=== PATIENT | female | born 1985 | race Caucasian/White ===

== ENCOUNTER → 2017-01-17 | Outpatient (CLI) | payer OTHER ==
[~2017-01-17] MED LIST: AUGMENTIN PO; BACTRIM DS TAB1 EACH PO; BENTYL20 MG PO; CIPRO PO; CLONIDINE HCL0.1 MG PO; DELTASONE20 MG PO; FIORINAL 50-321 EACH PO; IMODIUM2 MG PO; LEVAQUIN250 MG PO; MACROBID 100 M100 MG PO; MAGIC MOUTHWASH PO; MEDROL4 MG/DOSE- PO; MOTRIN100 MG PO; NAPROSYN250 M1; NAPROSYN250 M1 PO; NO MEDICATIONS; ORUDIS75 M1 DOB; PHENERGAN25 M1 PO; PREDNISONE10 MG PO; PRILOSEC20 MG PO; PYRIDIUM100 MG; PYRIDIUM100 MG PO; ZOFRAN ODT4 MG PO; ZOFRAN PO; ZOFRANODT PO
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
== END | disposition home or self-care (01) ==
LOC: CMRI 16:42
DX: S09.8XXA Other specified injuries of head, initial encounter (principal)
CPT/HCPCS: 70553; A9577

== ENCOUNTER 2017-01-21 19:11 | Emergency (ER) | payer OTHER ==
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
--- NOTE | ~2017-01-21 | EKG ---
PATIENT: ELAINE MARIN UNIT #: [id number] Ventricular Rate: 126 BPM Atrial Rate: 126 BPM P-R Interval: 142 ms QRS Duration: 76 ms Q-T Interval: 320 ms QTC Calculation(Bezet): 463 ms P [place]: 79 degrees Calculated R [place]: 72 degrees Calculated T [place]: 24 degrees Diagnosis Line: Sinus tachycardia Diagnosis Line: Poor R wave progression questionable lead position Diagnosis Line: or body habitus Otherwise normal ECG Diagnosis Line: When compared with ECG of 08-SEP-2014 14:25, Diagnosis Line: Vent. rate has increased BY 62 BPM Diagnosis Line: Confirmed by KOJO JUSTICE MD ([id number]) on 01/26/2017 Diagnosis Line: 11:56:45 AM INTERPRETING MD: RESHMA MILLER
[~2017-01-21 19:11] MED LIST changes: -BACTRIM DS TAB1 EACH PO; -DELTASONE20 MG PO; -PHENERGAN25 M1 PO; -ZOFRAN ODT4 MG PO
[2017-01-21 19:28] LABS: BASOPHIL% 0.4 % (0-2.5); DIFF IND NO; EOSINOPHIL% 0.6 % (0.0-7.0); HEMATOCRIT 40.9 % (35.0-45.0); HEMOGLOBIN 13.7 gm/dL (12.0-16.0); LYMPHOCYTE# 1.7 X10e3 (1.0-3.5); LYMPHOCYTE% 26.3 % (17.0-45.0); MEAN CELL VOLUME 79.1 FL (83-96); MEAN CORPUSCULAR HEMOGLOBIN 26.5 PG (28-34); MEAN CORPUSCULAR HGB CONC 33.5 g/dL (30-36); MEAN PLATELET VOLUME 7.6 FL (6.5-11.5); MONOCYTE# 0.7 X10e3 (0-1.0); MONOCYTE% 10.5 % (3.0-12.0); NEUTROPHIL# 4.1 X10e3 (1.5-7.1); NEUTROPHIL% 62.2 % (40-75); PLATELET COUNT 288 X10e3 (140-420); RED BLOOD COUNT 5.17 X10e (3.90-5.30); RED CELL DISTRIBUTION WIDTH 14.7 % (11.0-15.5); WHITE BLOOD COUNT 6.5 X10e3 (4.0-10.5)
[2017-01-21 19:38] LABS: ALBUMIN SERUM 4.5 g/dL (3.5-5.0); ALKALINE PHOSPHATASE 64 U/L (32-92); ALT (SGPT) 100 U/L (10-40); AST (SGOT) 56 U/L (10-42); BILIRUBIN, DIRECT 0.2 mg/dL (0.0-0.2); BILIRUBIN,INDIRECT 0.5 mg/dL (0.0-0.9); BILIRUBIN,TOTAL 0.7 mg/dL (0.2-2.0); BLOOD UREA NITROGEN 19 mg/dL (9-23); BUN/CREATININE RATIO 23.75; CALCIUM SERUM 8.8 mg/dL (8.4-10.2); CARBON DIOXIDE 25 mmol/L (22-31); CHLORIDE 106 mmol/L (100-111); CREATININE SERUM 0.8 mg/dL (0.6-1.4); GLOM FILT RATE Estimated 98.3 mL/min (>60); GLUCOSE FASTING 124 mg/dL (70-110); POTASSIUM 3.1 mmol/L (3.5-5.1); PROTEIN TOTAL SERUM 8.2 g/dL (6.0-8.3); SALICYLATE <4.0 mg/dL; SODIUM 138 mmol/L (135-145)
[2017-01-21 19:39] LABS: ACETAMINOPHEN <10 ug/mL; ALCOHOL BLOOD <5 mg/dL ([, 0])
[2017-01-21 19:45] LABS: URINE SOURCE CLEAN CATCH
[2017-01-21 19:47] LABS: URINE APPEARANCE SL CLOUDY; URINE BILIRUBIN NEG (NEG); URINE BLOOD 1+ (NEG); URINE COLOR AMBER; URINE GLUCOSE NEG (NORM); URINE KETONE NEG (NEG); URINE LEUKOCYTE ESTERASE TRACE (NEG); URINE NITRATE NEG (NEG); URINE PH 5.5 (5-8); URINE PROTEIN TRACE (NEG); URINE SPECIFIC GRAVITY >=1.030 (1.003-1.035); URINE UROBILINOGEN 0.2 MG/DL (NORM)
[2017-01-21 19:48] LABS: MICRO INDICATED? YES
[2017-01-21 19:56] LABS: CULTURE INDICATED? YES; URINE BACTERIA 4+ (NEG); URINE MUCUS PRESENT; URINE SQUAMOUS EPITHELIAL CELL FEW /[HPF]; URINE WBC 50-100 /[HPF] (0-5)
[2017-01-21 19:57] LABS: URINE AMORPHOUS SEDIMENT AMORP URATES
[2017-01-21 19:59] LABS: AMPHETAMINE POS (NEG); BARBITURATES NEG (NEG); BENZODIAZEPINES NEG (NEG); COCAINE NEG (NEG); MARIJUANA NEG (NEG); OPIATES NEG (NEG); TRICYCLIC ANTIDEPRESSANTS NEG (NEG); U METHADONE NEG (NEG)
[2017-01-22] MEDS ORDERED: DELTASONE20 MG PO (01:00)
== END 2017-01-22 01:00 | disposition home or self-care (01) ==
LOC: SED 19:11
PROVIDERS: Emergency Medicine
DX: F15.129 Other stimulant abuse with intoxication, unspecified (principal); R41.82 Altered mental status, unspecified; E87.6 Hypokalemia
CPT/HCPCS: 51701; 70450; 80048; 80076; 80307; 81003; 82947; 84703; 85025; 87086; 87088; 87186; 93005; 96360; 96372; 99284; G0480

== ENCOUNTER 2017-02-09 07:10 | Emergency (ER) | payer OTHER ==
[~2017-02-09 07:10] MED LIST changes: +DELTASONE20 MG PO
[2017-02-09 07:48] LABS: BASOPHIL# 0.1 X10e3 (0-0.3); EOSINOPHIL% 0.5 % (0.0-7.0); HEMATOCRIT 37.1 % (35.0-45.0); HEMOGLOBIN 12.4 gm/dL (12.0-16.0); LYMPHOCYTE# 0.6 X10e3 (1.0-3.5); LYMPHOCYTE% 9.5 % (17.0-45.0); MEAN CELL VOLUME 78.3 FL (83-96); MEAN CORPUSCULAR HEMOGLOBIN 26.2 PG (28-34); MEAN CORPUSCULAR HGB CONC 33.5 g/dL (30-36); MEAN PLATELET VOLUME 6.8 FL (6.5-11.5); MONOCYTE# 0.1 X10e3 (0-1.0); MONOCYTE% 2.2 % (3.0-12.0); NEUTROPHIL# 5.9 X10e3 (1.5-7.1); NEUTROPHIL% 86.8 % (40-75); PLATELET COUNT 254 X10e3 (140-420); RED BLOOD COUNT 4.74 X10e (3.90-5.30); RED CELL DISTRIBUTION WIDTH 14.2 % (11.0-15.5); WHITE BLOOD COUNT 6.8 X10e3 (4.0-10.5)
[2017-02-09 07:50] LABS: DIFF IND NO
[2017-02-09 08:05] LABS: URINE SOURCE CATH
[2017-02-09 08:08] LABS: URINE APPEARANCE SL CLOUDY; URINE BILIRUBIN NEG (NEG); URINE BLOOD 1+ (NEG); URINE COLOR YELLOW; URINE GLUCOSE NEG (NORM); URINE KETONE NEG (NEG); URINE LEUKOCYTE ESTERASE 3+ (NEG); URINE NITRATE POS (NEG); URINE PH 6.5 (5-8); URINE PROTEIN 1+ (NEG)
[2017-02-09 08:12] LABS: ALBUMIN SERUM 3.7 g/dL (3.5-5.0); ALKALINE PHOSPHATASE 60 U/L (32-92); ALT (SGPT) 44 U/L (10-40); AST (SGOT) 42 U/L (10-42); BILIRUBIN, DIRECT 0.2 mg/dL (0.0-0.2); BILIRUBIN,INDIRECT 0.6 mg/dL (0.0-0.9); BILIRUBIN,TOTAL 0.8 mg/dL (0.2-2.0); CALCIUM SERUM 8.7 mg/dL (8.4-10.2); CARBON DIOXIDE 30 mmol/L (22-31); CHLORIDE 100 mmol/L (100-111); CREATININE SERUM 0.6 mg/dL (0.6-1.4); GLOM FILT RATE Estimated 121.5 mL/min (>60); GLUCOSE FASTING 111 mg/dL (70-110); LIPASE 13 U/L (22-51); POTASSIUM 3.3 mmol/L (3.5-5.1); PROTEIN TOTAL SERUM 7.3 g/dL (6.0-8.3); SODIUM 139 mmol/L (135-145)
[2017-02-09 08:13] LABS: ALCOHOL BLOOD <5 mg/dL (0); BLOOD UREA NITROGEN <5 mg/dL (9-23); BUN/CREATININE RATIO 8.33
[2017-02-09 08:14] LABS: MICRO INDICATED? YES
[2017-02-09 08:15] LABS: CULTURE INDICATED? YES; URINE BACTERIA 3+ (NEG); URINE RBC 0-2 /[HPF] (0-2); URINE WBC 25-50 /[HPF] (0-5)
[2017-02-09 08:17] LABS: AMPHETAMINE NEG (NEG); BARBITURATES NEG (NEG); BENZODIAZEPINES NEG (NEG); COCAINE NEG (NEG); MARIJUANA NEG (NEG); OPIATES POS (NEG); TRICYCLIC ANTIDEPRESSANTS NEG (NEG); U METHADONE NEG (NEG)
[2017-02-09] MEDS ORDERED: BACTRIM DS TAB1 EACH PO (08:51)
[2017-02-09] MEDS ORDERED: ZOFRAN ODT4 MG PO (08:51)
[2017-02-09] MEDS ORDERED: PHENERGAN25 M1 PO (08:52)
== END 2017-02-09 08:57 | disposition home or self-care (01) ==
LOC: SED 07:10
PROVIDERS: Student in an Organized Health Care Education/Training Program
DX: N39.0 Urinary tract infection, site not specified (principal); F17.200 Nicotine dependence, unspecified, uncomplicated
CPT/HCPCS: 36415; 51701; 80048; 80076; 80307; 81003; 83690; 84703; 85025; 87086; 87088; 87186; 96361; 96374; 96375; 99284; G0480; J0696; J1885; J2405